=== PATIENT | male | born 1965 | race Two or more races ===

== ENCOUNTER → 2016-07-23 | Outpatient (REF) | payer BC | LOC: M SMT 13:19 | PROVIDERS: ATTEND Nurse Practitioner Family | DX: N20.0 Calculus of kidney (principal) ==

== ENCOUNTER → 2016-08-11 | Outpatient (REF) | payer BC | LOC: M SMT 13:11 | PROVIDERS: ATTEND Nurse Practitioner Family | DX: N20.0 Calculus of kidney (principal) ==

== ENCOUNTER → 2016-09-11 | Day surgery (SDC) | payer BC ==
[~2016-09-11] VITALS: Ht 180.3 cm; Wt 93.0 kg
[~2016-09-11] MED LIST: CONRAY-60 60% 50ML VIAL (Q9961) As Ordered ONE; FLOM5CAP PO; HYDROmorphone HCL 2 MG/ML 1ML VIAL (J1170) As Ordered ONE; KETOROLAC 60 MG/2 ML VIAL (J1885) As Ordered ONE; LEVO150T7 PO; LIDOCAINE 1% MDV 20ML VIAL SC PRN; LIDOCAINE 2% INJ 100 MG/5 ML SDV (FOR ANES.) As Ordered ONE; LR 1,000 ML IV ONE; LR 1,000 ML IV SCH; METOCLOPRAMIDE INJ 10MG/2ML VIAL (J2765) As Ordered ONE; METOCLOPRAMIDE INJ 10MG/2ML VIAL (J2765) IV PRN; MIDAZOLAM INJ 2 MG/2 ML VIAL (J2250) As Ordered ONE; ONDANSETRON 4MG/2ML VIAL (J2405) As Ordered ONE; ONDANSETRON 4MG/2ML VIAL (J2405) IV PRN; PERCOCET 5MG/325MG TAB PO PRN; PROPOFOL 200 MG/20 ML VIAL As Ordered ONE; SIMV20TA2 PO; VITMTA PO; dexameTHASONE 4 MG/ML 1ML VIAL (J1100) As Ordered ONE; fentaNYL 100 MCG/2 ML INJECTION (J3010) As Ordered ONE; fentaNYL 100 MCG/2 ML INJECTION (J3010) IV PRN; oxyBUTYnin 5 MG TAB PO PRN
--- NOTE | 2016-09-11 15:15 | REP ---
C-ARM VIEW ABDOMEN AND PELVIS: C-Arm view abdomen and pelvis performed. Right ureteral stent is seen with proximal end coiled in the region of the right renal pelvis, which is partially opacified with contrast material. The distal end is coiled in the region of the urinary bladder. 9 seconds of fluoroscopy time utilized. Signed by Harry Mccallum MD 09/11/2016 05:25 P
[2016-09-11 17:05] VITALS: BP 125/77
--- NOTE | 2016-09-12 14:24 | RO ---
DATE OF PROCEDURE: 09/11/2016 PREPROCEDURE DIAGNOSIS: Right ureteral stone. POSTPROCEDURE DIAGNOSIS: Right ureteral stone. PROCEDURE: Cystoscopy, right ureteroscopy with laser lithotripsy and basket extraction of stones, right retrograde pyelogram with intraoperative interpretation of images, right ureteral stent placement. SURGEON: Terry Hitchcock MD RUBBER CHEMIST: None. ANESTHESIA: General. OPERATIVE INDICATIONS: This is a 50-year-old male who was recently found to have a 5 mm obstructing right ureteral stone. He was brought to the operating room today for the above-listed procedures. DESCRIPTION OF PROCEDURE: The patient was brought to the operating room, and general anesthesia was induced. Prophylactic antibiotics were infused. He was then placed in the dorsal lithotomy position and prepped and draped in the usual sterile fashion. A rigid cystoscope was inserted into the urethral meatus and advanced into the bladder. Once within the bladder, a guidewire was advanced up the right collecting system. This wire was secured to the drape to serve as a safety wire. We then went up the right collecting system with a short semirigid ureteroscope; and within the distal right ureter, a 5 mm stone was seen. This stone was then fragmented into smaller pieces using a 200 micron laser fiber. The fragments were then removed using a basket. We then examined the rest of the ureter, and no additional stones were seen. A retrograde pyelogram was performed, and it was notable for mild hydronephrosis with no extravasation. At this point, the ureteroscope was removed, and I utilized the previously-placed wire to advance a 6-Iraqi x 22-32 cm double J ureteral stent up into the right collecting system. The wire was then removed, and there were adequate curls of the stent in the right renal pelvis and in the bladder. The bladder was emptied of all fluid, and this marked the conclusion of the procedure. The patient was then taken out of the dorsal lithotomy position, awakened from anesthesia, and transported to the recovery room in stable condition. ESTIMATED BLOOD LOSS: 0 mL. COMPLICATIONS: None. SPECIMENS: Kidney stone fragments. PLAN: The patient will followup in the clinic in a week or two for stent removal.
== END | disposition home or self-care (01) ==
LOC: M SDC 10:43
PROVIDERS: ATTEND Urology
DX: N20.0 Calculus of kidney (principal); N20.1 Calculus of ureter; E78.5 Hyperlipidemia, unspecified; E03.9 Hypothyroidism, unspecified; Z79.899 Other long term (current) drug therapy
CPT/HCPCS: 52356; 74420; 82360; 88300; C1726; C2617; J0690; J1100; J1170; J1885; J2250; J2405; J2765; J3010; Q9961

== ENCOUNTER → 2018-10-17 | Outpatient (CLI) | payer BC ==
[~2018-10-17] MED LIST changes: -CONRAY-60 60% 50ML VIAL (Q9961) As Ordered ONE; +FLOM0.4C39 PO; -FLOM5CAP PO; -HYDROmorphone HCL 2 MG/ML 1ML VIAL (J1170) As Ordered ONE; +IRON65TA2 PO; -KETOROLAC 60 MG/2 ML VIAL (J1885) As Ordered ONE; -LIDOCAINE 1% MDV 20ML VIAL SC PRN; -LIDOCAINE 2% INJ 100 MG/5 ML SDV (FOR ANES.) As Ordered ONE; -LR 1,000 ML IV ONE; -LR 1,000 ML IV SCH; -METOCLOPRAMIDE INJ 10MG/2ML VIAL (J2765) As Ordered ONE; -METOCLOPRAMIDE INJ 10MG/2ML VIAL (J2765) IV PRN; -MIDAZOLAM INJ 2 MG/2 ML VIAL (J2250) As Ordered ONE; -ONDANSETRON 4MG/2ML VIAL (J2405) As Ordered ONE; -ONDANSETRON 4MG/2ML VIAL (J2405) IV PRN; +PANT40TA3 PO; -PERCOCET 5MG/325MG TAB PO PRN; -PROPOFOL 200 MG/20 ML VIAL As Ordered ONE; +XANA0.25 PO; +ZOLO50TA PO; -dexameTHASONE 4 MG/ML 1ML VIAL (J1100) As Ordered ONE; -fentaNYL 100 MCG/2 ML INJECTION (J3010) As Ordered ONE; -fentaNYL 100 MCG/2 ML INJECTION (J3010) IV PRN; -oxyBUTYnin 5 MG TAB PO PRN
--- NOTE | 2018-10-18 06:22 | REP ---
Clinical: Venous insufficiency . Technique: Mccallum scale and color Doppler evaluation using linear high frequency transducer with reflux evaluation . Findings: Ultrasound examination of the right and left lower extremity deep venous structures from the common femoral vein to the popliteal vein demonstrates normal compressibility flow and wave patterns in response to respiration and augmentation. There is no evidence for deep venous thrombosis. Small amount of thrombus noted in the left greater saphenous vein at the level of the calf. Right lower extremity demonstrates reflux through the deep system as well as reflux through the superficial system. Proximal greater saphenous vein at the saphenofemoral junction measures 11 mm diameter with reflux duration 3.6 seconds. Mid greater saphenous vein at the level of the thigh measures 7 mm diameter with reflux duration 4.4 seconds. Distal greater saphenous vein at the knee measures 10 mm diameter with reflux duration 4.1 seconds. Lesser saphenous vein measures 1.4 mm diameter without reflux. Left lower extremity demonstrates reflux through the deep system as well as reflux through the superficial system. Proximal greater saphenous vein at the saphenofemoral junction measures 13 mm diameter with reflux duration 8.7 seconds. Mid greater saphenous vein at the level of the thigh measures 8 mm diameter with reflux duration 3.2 seconds. Distal greater saphenous vein at the knee measures 9 mm diameter with a reflux duration 7 seconds. Lesser saphenous vein measures 2.4 mm diameter without reflux. Impression: 1. No evidence for deep venous thrombosis. 2. Bilateral reflux through the deep and superficial systems. Electronically Signed by Angelito Bhagat MD 10/18/2018 06:13 A
== END ==
LOC: M RAD 11:45
PROVIDERS: ATTEND Physician Assistant
DX: I87.2 Venous insufficiency (chronic) (peripheral) (principal); I80.00 Phlebitis and thrombophlebitis of superficial vessels of unspecified lower extremity

== ENCOUNTER 2018-10-19 11:32 | Day surgery (SDC) | payer BC ==
[~2018-10-19] VITALS: Ht 180.3 cm; Wt 88.6 kg
[~2018-10-19 11:32] MED LIST changes: +NS 1,000 ML IV ONE
[2018-10-19] MEDS ORDERED: PROPOFOL 200 MG/20 ML VIAL As Ordered ONE (11:56)
[2018-10-19] MEDS ORDERED: LIDOCAINE 2% INJ 100 MG/5 ML SDV (FOR ANES.) As Ordered ONE (11:56)
--- NOTE | 2018-10-19 13:35 | ROOR ---
Patient Name: Marvin Connor Procedure Date: 10/19/2018 1:17 PM Date of : 1965 Age: 52 Room: [facility] Gender: Male Note Status: Finalized Procedure: Upper Endoscopy + Biopsies Indications: Iron deficiency anemia Providers: Nabeel Duncan MD Referring MD: Lamar PARRISH NP Requesting Provider: Medicines: Monitored Anesthesia Care Complications: No immediate complications. Procedure: Pre-Anesthesia Assessment: - The heart rate, respiratory rate, oxygen saturations, blood pressure, adequacy of pulmonary ventilation, and response to care were monitored throughout the procedure. The Endoscope was introduced through the mouth, and advanced to the second part of duodenum. The upper GI endoscopy was accomplished without difficulty. The patient tolerated the procedure well. Findings: The Z-line was irregular and was found 40 cm from the incisors. Multiple biopsies were obtained with cold forceps for evaluation to rule out Gomez's Esophagus randomly at the gastroesophageal junction. A small hiatal hernia was present. No other significant abnormalities were identified in a careful examination of the stomach. Biopsies were taken with a cold forceps in the gastric antrum for Helicobacter pylori testing. The exam of the duodenum was otherwise normal. Biopsies for histology were taken with a cold forceps in the first portion of the duodenum for evaluation of celiac disease. The exam was otherwise without abnormality. Impression: - Z-line irregular, 40 cm from the incisors. - Small hiatal hernia. - The examination was otherwise normal. - Multiple biopsies were obtained at the gastroesophageal junction. - Biopsies were taken with a cold forceps for Helicobacter pylori testing. - Biopsies were taken with a cold forceps for evaluation of celiac disease. - The examination was otherwise normal. Recommendation: - Patient has a contact number available for emergencies. The signs and symptoms of potential delayed complications were discussed with the patient. Return to normal activities tomorrow. Written discharge instructions were provided to the patient. - High fiber diet. - Discharge patient to home. - Follow an antireflux regimen. - Continue present medications. - Await pathology results. - Telephone GI clinic for pathology results in 1 week. - Check Portal Online for Path Results.([email or web address] - The findings and recommendations were discussed with the patient's family. Nabeel Duncan MD Nabeel Duncan MD 10/19/2018 1:34:58 PM Electronically signed by Nabeel Duncan MD Number of Addenda: 0 Note Initiated On: 10/19/2018 1:17 PM Estimated Blood Loss: Estimated blood loss: none.
--- NOTE | 2018-10-19 13:56 | ROOR ---
Patient Name: Marvin Connor Procedure Date: 10/19/2018 1:18 PM Date of : 1965 Age: 52 Room: [facility] Gender: Male Note Status: Finalized Procedure: Total Colonoscopy to Cecum + Cold Snare Polypectomy + Hemoclips + ileoscopy Indications: Unexplained iron deficiency anemia Providers: Nabeel Duncan MD Referring MD: Lamar PARRISH NP Requesting Provider: Medicines: Monitored Anesthesia Care Complications: No immediate complications. Procedure: Pre-Anesthesia Assessment: - The heart rate, respiratory rate, oxygen saturations, blood pressure, adequacy of pulmonary ventilation, and response to care were monitored throughout the procedure. The Colonoscope was introduced through the anus and advanced to the terminal ileum, with identification of the appendiceal orifice and IC valve. The colonoscopy was performed without difficulty. The patient tolerated the procedure well. The quality of the bowel preparation was excellent. Findings: The perianal and digital rectal examinations were normal. Non-bleeding internal hemorrhoids were found during retroflexion. The hemorrhoids were small and Grade I (internal hemorrhoids that do not prolapse). A medium polyp was found at 30 cm proximal to the anus. The polyp was sessile. The polyp was removed with a cold snare. Resection and retrieval were complete. To prevent bleeding after the polypectomy, three hemostatic clips were successfully placed (MR conditional). There was no bleeding at the end of the procedure. A small polyp was found in the transverse colon. The polyp was sessile. The polyp was removed with a cold snare. Resection and retrieval were complete. The terminal ileum appeared normal. The exam was otherwise without abnormality on direct and retroflexion views. Impression: - Non-bleeding internal hemorrhoids. - One medium polyp at 30 cm proximal to the anus, removed with a cold snare. Resected and retrieved. Clips (MR conditional) were placed. - One small polyp in the transverse colon, removed with a cold snare. Resected and retrieved. - The examined portion of the ileum was normal. - The examination was otherwise normal on direct and retroflexion views. - The exam was otherwise normal to the cecum. Recommendation: - Patient has a contact number available for emergencies. The signs and symptoms of potential delayed complications were discussed with the patient. Return to normal activities tomorrow. Written discharge instructions were provided to the patient. - High fiber diet. - Discharge patient to home. - Continue present medications. - Await pathology results. - Telephone GI clinic for pathology results in 1 week. - Repeat colonoscopy for surveillance based on pathology results. - Return to referring physician. - Check Portal Online for Path Results.([email or web address] - The findings and recommendations were discussed with the patient's family. Nabeel Duncan MD Nabeel Duncan MD 10/19/2018 1:56:15 PM Electronically signed by Nabeel Duncan MD Number of Addenda: 0 Note Initiated On: 10/19/2018 1:18 PM Estimated Blood Loss: Estimated blood loss: none.
[2018-10-19 14:35] VITALS: BP 130/83
== END 2018-10-19 14:44 | disposition home or self-care (01) ==
LOC: M OPP 11:32
PROVIDERS: ATTEND Internal Medicine Gastroenterology
DX: K64.0 First degree hemorrhoids (principal); D12.6 Benign neoplasm of colon, unspecified; D12.3 Benign neoplasm of transverse colon; K22.8 Other specified diseases of esophagus; K44.9 Diaphragmatic hernia without obstruction or gangrene; D50.9 Iron deficiency anemia, unspecified; Z79.899 Other long term (current) drug therapy

== ENCOUNTER 2018-11-08 03:06 | Inpatient (IN) | payer BC ==
[~2018-11-08] VITALS: Ht 180.3 cm; Wt 86.6 kg
[~2018-11-08 03:06] MED LIST changes: -NS 1,000 ML IV ONE
[2018-11-08] MEDS ORDERED: SIMV20TA2 PO (04:17)
[2018-11-08] MEDS ORDERED: ALPR0.5T3 PO (04:17)
[2018-11-08] MEDS ORDERED: SERTRALINE 100 MG TAB PO ONE (09:00)
[2018-11-08] MEDS ORDERED: ALPRAZolam 0.5 MG TAB PO ONE (09:00)
[2018-11-08] MEDS ORDERED: ALPRAZolam 0.5 MG TAB PO PRN (13:45)
[2018-11-08] MEDS ORDERED: HALOPERIDOL 5 MG TAB PO PRN (13:45)
[2018-11-08] MEDS ORDERED: ACETAMINOPHEN TAB 650MG DOSE (2X325MG) PO PRN (13:45)
[2018-11-08] MEDS ORDERED: MOM 30ML SUSPENSION UDC PO PRN (13:45)
[2018-11-08] MEDS ORDERED: traZODone 50 MG TAB PO PRN (13:45)
[2018-11-08 15:10] VITALS: BP 129/84
[2018-11-08] MEDS: SERTRALINE HCL 50 MG TAB PO SCH (15:31)
[2018-11-08] MEDS: SIMVASTATIN 20 MG TAB PO SCH (20:49)
[2018-11-08] MEDS: LEVOTHYROXINE 150MCG TABLET (0.15MG) PO SCH (20:49)
[2018-11-08] MEDS: PANTOPRAZOLE 40MG TAB (PROTONIX) PO SCH (20:49)
[2018-11-08] MEDS: FERROUS SULFATE 325MG TAB PO SCH (20:49)
[2018-11-09 06:47] VITALS: BP 111/58
[2018-11-09 08:47] LABS: BASO % 0.5 % (0.0-1.0); EOS % 0.7 % (0.0-3.0); HEMATOCRIT 44.8 % (42.0-52.0); LYMPH # 1.2 10^3/uL (1.5-4.5); LYMPH % 19.5 % (24.0-44.0); MEAN CORPUSCULAR HEMOGLOBIN 30.2 pg (27.0-33.0); MEAN CORPUSCULAR HGB CONC 33.5 g/dl (32.0-36.5); MEAN CORPUSCULAR VOLUME 90.1 fl (80.0-96.0); MONO # 0.6 10^3/uL (0.0-0.8); MONO % 10.6 % (0.0-5.0); NEUTROPHILS # 4.1 10^3/uL (1.8-7.7); NEUTROPHILS % 68.4 % (36.0-66.0); PLATELET COUNT, AUTOMATED 334 10^3/uL (150-450); RED BLOOD COUNT 4.97 10^6/uL (4.30-6.10); WHITE BLOOD COUNT 5.9 10^3/uL (4.0-10.0)
[2018-11-09] MEDS: FERROUS SULFATE 325MG TAB PO SCH ×2 (08:57→20:23)
[2018-11-09] MEDS: SERTRALINE HCL 50 MG TAB PO SCH (08:58)
[2018-11-09] MEDS: PANTOPRAZOLE 40MG TAB (PROTONIX) PO SCH ×2 (08:58→20:23)
[2018-11-09] MEDS: MULTIVITAMINS/MINERALS THERAP 1 TAB PO SCH (08:58)
[2018-11-09 09:15] LABS: ALBUMIN 3.9 GM/DL (3.2-5.2); ALT/SGPT 27 U/L (12-78); BILIRUBIN,TOTAL 0.9 MG/DL (0.2-1.0); BLOOD UREA NITROGEN 16 MG/DL (7-18); CALCIUM LEVEL 9.3 MG/DL (8.5-10.1); CARBON DIOXIDE LEVEL 24 MEQ/L (21-32); CHLORIDE LEVEL 107 MEQ/L (98-107); CREATININE FOR GFR 1.09 MG/DL (0.70-1.30); GLOMERULAR FILTRATION RATE > 60.0 (>56); GLUCOSE, FASTING 90 MG/DL (70-100); SODIUM LEVEL 141 MEQ/L (136-145)
--- NOTE | 2018-11-09 11:54 | MHHPEPDOC ---
[facility] History & Physical History and Physical DATE OF ADMISSION: Nov 08, 2018 at 13:44 Date of Service: 11/09/2018 Chief Complaint "I just couldn't take it anymore." History of Present Illness The patient, a 53-year-old man, with no past psychiatric history, presents to [facility] with increasing depression and loss of function. He reportedly had an episode roughly 3 months ago where he nearly in a gastrointestinal bleed treated in [place]. The patient reports that after this he began to fear as he has reportedly been fairly healthy. He additionally notes stressors of his mother being diagnosed with cancer as well as poor social connection. The patient reports having low energy, loss of interest, concentration, focus problems and has not been able to sleep well with no suicidal thoughts at this time, but increasing hopelessness. He reports that he does have some intrusive thoughts related to the event with some avoidance, negative cognition about the future and increased anxiety/hypervigilance. Review Of Systems Depression: As above. Anxiety: Trauma-related stressors, but no unprovoked anxiety. Stella: The patient denies any episodes of euphoria/dysphoria associated with decreased need for sleep, hedonism, talkatively or impulsivity lasting longer than 5 days. Psychotic: The patient denies any experiences of auditory or visual hallucinations. They deny any episodes of paranoia or delusional thinking in the past Trauma: As above. Borderline: Not screened at this time. Past Psychiatric History The patient has no history of mental health follow-up except for a short-time treatment with Mindi Solares for therapy as well as being treated by primary care with sertraline 100 mg that he notes is not helpful. He has no history of suicide attempts in the past. Allergies Please see below. Family Psychiatric History The patient denies/is unaware any history of mental health history including addictions and suicide. Social History The patient grew up in the local area and describes that his parents were with a relatively close relationship. The patient describes that he was able to graduate with a high school diploma and currently works as maintenance at [employer]. He currently lives alone and has a long-term girlfriend, but has never been . He has no children at this time and reports that he has fair support from some friends, but generally lives a fairly isolative life. He denies any significant abuse or violence growing up. Substance Abuse History The patient denies any excessive alcohol use, tobacco or illicit drug use, denies history of substance use treatment. Medical History The patient has had no past medical history up until a recent GI bleed from unknown causes. Mental Status Examination General: Well dressed with good hygiene Speech: Spontaneous and fluid Thought processes: Linear and logical MSK: Smooth and coordinated gait, no signs of tremors or involuntary orofacial movements Thought content: Help-seeking Abstract reasoning, and computation: Intact Description of associations: Intact Description of abnormal or psychotic thoughts: Denies any suicidal or homicidal ideation. Denies any auditory or visual hallucinations. Does not appear to be responding to internal stimuli. Does not appear to be endorsing any bizarre or paranoid ideation. Judgment: Fair Insight: Fair Orientation: Alert and orientated 3 Cognition: Grossly normal Recent and remote memory: Intact Attention span and concentration: Intact Fund of knowledge: Adequate Mood: "okay" Affect: Highly anxious with a constricted range Diagnoses Unspecified trauma/stressor-related disorder. Rule out ICU PTSD. Unspecified depressive disorder. Rule out MDD versus PTSD-related depression versus adjustment. Assessment and Plan The patient, a 53-year-old man, with a history of ICU-related trauma, presents depressed, is likely overall trauma-related provoked/base condition provoking his problems. He has tried very few medications and likely would do well with very minimal interventions. Disposition The patient will need a longer inpatient admission in order to stabilize his symptoms and assure for a safe discharge. Problem List 1. Ineffective coping. 2. Depression. 3. Anxiety. Initial Treatment Plan 1. Patient was admitted on a 9.39 legal status. 2. Complete history was obtained. 3. With patients permission, family will be contacted and database will be expanded. 4. Patients medication regimen will be reviewed and changed accordingly. 5. Patient will be provided with protected environment. 6. Patient will be treated with individual, group, and milieu therapies. 7. Patient will receive supportive psych-education. 8. Discharge planning will commence immediately. 9. Outpatient follow-up treatment will be strongly recommended. 10. The initial treatment plan will focus initially on: continuing sertraline 100 mg daily and starting Wellbutrin 150 mg extended release as augmentation. Discussed risks, benefits and potential side effects of Wellbutrin in combination with sertraline. Additionally, we will discontinue Xanax. Discussed at length psychoeducation-espitia anxiety and the avoidance that Xanax creates w orking against his treatment. We will convert patient to voluntary as he does not meet criteria for extension of an involuntary admission at this time. Estimated Length Of Stay 3 days. Time Spent 45 minutes. Wednesday Vital Signs Vital Signs Date Time Temp Pulse Resp B/P (MAP) Pulse Ox O2 Delivery O2 Flow Rate FiO2 11/09/18 06:47 98.3 80 18 111/58 (75) 11/08/18 13:55 97 Room Air Laboratory Data 24H Labs Laboratory Tests 2 11/09/18 08:22: Immature Granulocyte % (Auto) 0.3, White Blood Count 5.9, Red Blood Count 4.97, Hemoglobin 15.0, Hematocrit 44.8, Mean Corpuscular Volume 90.1, Mean Corpuscular Hemoglobin 30.2, Mean Corpuscular Hemoglobin Concent 33.5, Red Cell Distribution Width 13.1, Platelet Count 334, Neutrophils (%) (Auto) 68.4H, Lymphocytes (%) (Auto) 19.5L, Monocytes (%) (Auto) 10.6H, Eosinophils (%) (Auto) 0.7, Basophils (%) (Auto) 0.5, Neutrophils # (Auto) 4.1, Lymphocytes # (Auto) 1.2L, Monocytes # (Auto) 0.6, Eosinophils # (Auto) 0.0, Basophils # (Auto) 0.0, Nucleated Red Blood Cells % (auto) 0.0, Anion Gap 10, Glomerular Filtration Rate > 60.0, Blood Urea Nitrogen 16, Creatinine 1.09, Sodium Level 141, Potassium Level 4.0, Chloride Level 107, Carbon Dioxide Level 24, Calcium Level 9.3, Aspartate Amino Transf (AST/SGOT) 15, Alanine Aminotransferase (ALT/SGPT) 27, Alkaline Phosphatase 91, Total Bilirubin 0.9, Total Protein 7.0, Albumin 3.9, Alb umin/Globulin Ratio 1.26 CBC/BMP Laboratory Tests 11/09/18 08:22 Red Blood Count 4.97, Mean Corpuscular Volume 90.1, Mean Corpuscular Hemoglobin 30.2, Mean Corpuscular Hemoglobin Concent 33.5, Red Cell Distribution Width 13.1, Neutrophils (%) (Auto) 68.4 H, Lymphocytes (%) (Auto) 19.5 L, Monocytes (%) (Auto) 10.6 H, Eosinophils (%) (Auto) 0.7, Basophils (%) (Auto) 0.5, Neutro phils # (Auto) 4.1, Lymphocytes # (Auto) 1.2 L, Monocytes # (Auto) 0.6, Eosinophils # (Auto) 0.0, Basophils # (Auto) 0.0, Calcium Level 9.3, Aspartate Amino Transf (AST/SGOT) 15, Alanine Aminotransferase (ALT/SGPT) 27, Alkaline Phosphatase 91, Total Bilirubin 0.9, Total Protein 7.0, Albumin 3.9 Medications Scheduled Ferrous Sulfate (Iron) 325 Mg Tablet, 325 MG PO BID, (Reported) Levothyroxine Sodium (Levothyroxine Sodium) 150 Mcg Tab, 150 MCG PO QHS, (Reported) Multivitamins (Thera M Plus Tablet) 1 Tab Tab, 1 TAB PO DAILY, (Reported) Pantoprazole Sodium (Pantoprazole Sodium) 40 Mg Tablet.dr, 40 MG PO BID, (Reported) Sertraline Hcl (Zoloft) 50 Mg Tablet, 100 MG PO DAILY, (Reported) Simvastatin (Simvastatin) 20 Mg Tablet, 20 MG PO QHS, (Reported) Scheduled PRN Alprazolam (Alprazolam) 0.5 Mg Tablet, 0.5 MG PO TID PRN for ANXIETY, (Reported) Allergies Coded Allergies: No Known Allergies (Unverified , 11/08/18) LEENA AVILEZ DO Nov 09, 2018 11:54
--- NOTE | 2018-11-09 11:58 | HPEPDOC ---
General Date of Admission Nov 08, 2018 at 13:44 Date of Service: Nov 09, 2018 Attending Physician: FER TORRES MD Chief Complaint The patient is a 53-year-old male admitted with a reason for visit of Unspecified Depressive Disorder. History of Present Illness Nioklas Hale is a 53-year-old male, primary medical history significant for peripheral vascular disease with venous insufficiency, depression who presents to ED as a transfer on account of depression for 3 months, worsening in intensity. He was admitted to inpatient psychiatric unit for further evaluation and management. On assessment, he denies chest pain, chills, fever, shortness of breath. On assessment, he denies chills, fever, chest pain, shortness of breath. He complains of left lower extremity varicose veins for which she has seen vascular surgery. There are plans for vein ablation next month. Home Medications Scheduled Ferrous Sulfate (Iron) 325 Mg Tablet, 325 MG PO BID, (Reported) Levothyroxine Sodium (Levothyroxine Sodium) 150 Mcg Tab, 150 MCG PO QHS, (Reported) Multivitamins (Thera M Plus Tablet) 1 Tab Tab, 1 TAB PO DAILY, (Reported) Pantoprazole Sodium (Pantoprazole Sodium) 40 Mg Tablet.dr, 40 MG PO BID, (Reported) Sertraline Hcl (Zoloft) 50 Mg Tablet, 100 MG PO DAILY, (Reported) Simvastatin (Simvastatin) 20 Mg Tablet, 20 MG PO QHS, (Reported) Scheduled PRN Alprazolam (Alprazolam) 0.5 Mg Tablet, 0.5 MG PO TID PRN for ANXIETY, (Reported) Allergies Coded Allergies: No Known Allergies (Unverified , 11/08/18) Past Medical History Medical History Hyperlipidemia Venous insufficiency Depression Surgical History Appendectomy. Nephrolithiasis and removal Family History Father: Myocardial infarction, CAD Mother: Cancer Social History * Smoker: Denies Alcohol: Denies Drugs: denies A-FIB/CHADSVASC A-FIB History Current/History of A-Fib/PAF?: No Current PO Anticoag Therapy: No Review of Systems Other systems A pertinent 10 point review of systems is completed, negative except as stated in the history of presenting illness Physical Examination Other physical findings GENERAL: NAD SKIN : Warm, dry intact HEENT: Atraumatic, normocephalic, moist mucous membrane CARDIOVASCULAR: Regular rate and rhythm, S1S2, no JVD, no edema, lower extremity gross venous varicosity, distal pulses + palpable RESP: CTAB, no accessory muscle use noted ABDOMEN: BS+ non distended non tender MS: no joint deformities NEURO: Alert and oriented x 3, CN2-12 grossly intact PSYCH: no anxiety or agitation, appropriate mood and affect. Vital Signs Vital Signs Date Time Temp Pulse Resp B/P (MAP) Pulse Ox O2 Delivery O2 Flow Rate FiO2 11/09/18 06:47 98.3 80 18 111/58 (75) 11/08/18 13:55 97 Room Air Laboratory Data Labs 24H Laboratory Tests 2 11/09/18 08:22: Immature Granulocyte % (Auto) 0.3, White Blood Count 5.9, Red Blood Count 4.97, Hemoglobin 15.0, Hematocrit 44.8, Mean Corpuscular Volume 90.1, Mean Corpuscular Hemoglobin 30.2, Mean Corpuscular Hemoglobin Concent 33.5, Red Cell Distribution Width 13.1, Platelet Count 334, Neutrophils (%) (Auto) 68.4H, Lymphocytes (%) ( Auto) 19.5L, Monocytes (%) (Auto) 10.6H, Eosinophils (%) (Auto) 0.7, Basophils (%) (Auto) 0.5, Neutrophils # (Auto) 4.1, Lymphocytes # (Auto) 1.2L, Monocytes # (Auto) 0.6, Eosinophils # (Auto) 0.0, Basophils # (Auto) 0.0, Nucleated Red Blood Cells % (auto) 0.0, Anion Gap 10, Glomerular Filtration Rate > 60.0, Blood Urea Nitrogen 16, Creatinine 1.09, Sodium Level 141, Potassium Level 4.0, Chloride Level 107, Carbon Dioxide Level 24, Calcium Level 9.3, Aspartate Amino Transf (AST/SGOT) 15, Alanine Aminotransferase (ALT/SGPT) 27, Alkaline Phosphatase 91, Total Bilirubin 0.9, Total Protein 7.0, Albumin 3.9, Albumin/Globulin Ratio 1.26 CBC/BMP Laboratory Tests 11/09/18 08:22 Red Blood Count 4.97, Mean Corpuscular Volume 90.1, Mean Corpuscular Hemoglobin 30.2, Mean Corpuscular Hemoglobin Concent 33.5, Red Cell Distribution Width 13.1, Neutrophils (%) (Auto) 68.4 H, Lymphocytes (%) (Auto) 19.5 L, Monocytes (%) (Auto) 10.6 H, Eosinophils (%) (Auto) 0.7, Basophils (%) (Auto) 0.5, Neutrophils # (Auto) 4.1, Lymphocytes # (Auto) 1.2 L, Monocytes # (Auto) 0.6, Eosinophils # (Auto) 0.0, Basophils # (Auto) 0.0, Calcium Level 9.3, Aspartate Amino Transf (AST/SGOT) 15, Alanine Aminotransferase (ALT/SGPT) 27, Alkaline Phosphatase 91, Total Bilirubin 0.9, Total Protein 7.0, Albumin 3.9 Assessment/Plan Varicose veins -Daily Lovenox was initially suggested patient declined -Amenable to using teds during this hospitalization -Plan for vein ablation next month with Dr. Brice Depression -Management by primary team Plan / VTE VTE Prophylaxis Ordered?: Yes PRATIK HOPKINS Nov 09, 2018 11:58
[2018-11-09] MEDS ORDERED: buPROPion **XL** TABLET 150MG (WELLBUTRIN XL) PO ONE (14:45)
[2018-11-09 18:00] VITALS: BP 122/75
[2018-11-09] MEDS: SIMVASTATIN 20 MG TAB PO SCH (20:23)
[2018-11-09] MEDS: LEVOTHYROXINE 150MCG TABLET (0.15MG) PO SCH (20:23)
[2018-11-09] MEDS: RAMELTEON 8 MG TAB (ROZEREM) PO PRN (21:48)
[2018-11-10 06:42] VITALS: BP 116/65
[2018-11-10] MEDS: MULTIVITAMINS/MINERALS THERAP 1 TAB PO SCH (08:31)
[2018-11-10] MEDS: buPROPion **XL** TABLET 150MG (WELLBUTRIN XL) PO SCH (08:31)
[2018-11-10] MEDS: FERROUS SULFATE 325MG TAB PO SCH (08:31)
[2018-11-10] MEDS: PANTOPRAZOLE 40MG TAB (PROTONIX) PO SCH ×2 (08:32→20:33)
[2018-11-10] MEDS: SERTRALINE HCL 50 MG TAB PO SCH (08:32)
[2018-11-10 09:35] VITALS: BP 120/66
[2018-11-10 18:00] VITALS: BP 128/77
[2018-11-10] MEDS: SIMVASTATIN 20 MG TAB PO SCH (20:33)
[2018-11-10] MEDS: LEVOTHYROXINE 150MCG TABLET (0.15MG) PO SCH (20:33)
--- NOTE | 2018-11-10 20:52 | MHIPNPDOC ---
[facility] Progress Note Progress Note Date of Service: 11/10/2018 History of Present Illness The patient, a 53-year-old man, with no past psychiatric history, presents to [facility] with increasing depression and loss of function. He reportedly had an episode roughly 3 months ago where he nearly in a gastrointestinal bleed treated in [place]. The patient reports that after this he began to fear as he has reportedly been fairly healthy. He additionally notes stressors of his mother being diagnosed with cancer as well as poor social connection. The patient reports having low energy, loss of interest, concentration, focus problems and has not been able to sleep well with no suicidal thoughts at this time, but increasing hopelessness. He reports that he does have some intrusive thoughts related to the event with some avoidance, negative cognition about the future and increased anxiety/hypervigilance. Interval History The patient is met with. He describes he hasn't noticed strong effect from the medication yet, but does notice some small changes in focus and concentration as well as more interest in engaging in daily activities, such as watching TV. The patient denies any side effects from his Wellbutrin, such as tremors, GI upset or other concerning problems. He has been attending groups intermittently and has generally been well-behaved on the unit with no behavioral problems noted. The patient has been at times reportedly someone needy, focusing in on various medications and asking whether "I'll ever get better." He seems to respond very mildly to some reassurance, but continues to be fairly anxious on the unit. Review Of Systems Reports continued anxiety worse in the morning; however, he describes that this has been common with his depressed mood for last 3 months. Psychotherapy None on this visit. Vital Signs Reviewed. Mental Status Examination General: Well dressed with good hygiene Speech: Spontaneous and fluid Thought processes: Linear and logical MSK: Smooth and coordinated gait, no signs of tremors or involuntary orofacial movements Thought content: Help-seeking Abstract reasoning, and computation: Intact Description of associations: Intact Description of abnormal or psychotic thoughts: Denies any suicidal or homicidal ideation. Denies any auditory or visual hallucinations. Does not appear to be responding to internal stimuli. Does not appear to be endorsing any bizarre or paranoid ideation. Judgment: Fair Insight: Fair Orientation: Alert and orientated 3 Cognition: Grossly normal Recent and remote memory: Intact Attention span and concentration: Intact Fund of knowledge: Adequate Mood: "okay" Affect: Highly anxious with a constricted range Diagnoses Unspecified trauma/stressor-related disorder. Rule out ICU PTSD. Unspecified depressive disorder. Rule out MDD versus PTSD-related depression versus adjustment. Assessment and Plan The patient appears to be making sufficient improvement on a low dose of Wellbutrin 150 mg extended release with augmented with his sertraline 100 mg daily. We'll continue with these medications as well as Rozerem for sleep. Further monitoring as his depression begins to resolve will help elicit whether further medication changes will be helpful. Disposition The patient will need a longer inpatient admission in order to stabilize his symptoms and assure for a safe discharge. Time Spent 15 minutes [id number]. Vital Signs Vital Signs Date Time Temp Pulse Resp B/P (MAP) Pulse Ox O2 Delivery O2 Flow Rate FiO2 11/10/18 18:00 98.7 94 18 128/77 (94) 11/08/18 13:55 97 Room Air Current Medications Current Medications Medications (Trade) Dose Ordered Sig/Jose Miguel Route PRN Reason Start Time Stop Time Status Last Admin Dose Admin Acetaminophen (Tylenol Tab) 650 mg Q6HP PRN PO HEADACHE or DISCOMFORT 11/08/18 13:45 11/10/18 08:56 Alprazolam (Xanax) 0.5 mg TID PRN PO ANXIETY 11/08/18 13:45 11/09/18 14:45 DC 11/09/18 02:44 Bupropion HCl (Wellbutrin Xl) 150 mg DAILY PO 11/10/18 09:00 11/10/18 08:31 Ferrous Sulfate (Ferrous Sulfate) 325 mg BID PO 11/08/18 21:00 11/10/18 19:37 DC 11/10/18 08:31 Ferrous Sulfate (Ferrous Sulfate) 325 mg DAILY PO 11/11/18 09:00 Haloperidol (Haldol) 5 mg Q6HP PRN PO ANXIETY/AGITATION 11/08/18 13:45 Home Med (Med Rec Complete!) ASDIRECTED XX 11/08/18 04:30 11/08/18 04:32 DC Levothyroxine Sodium (Synthroid) 150 mcg QHS PO 11/08/18 21:00 11/10/18 20:33 Magnesium Hydroxide (Milk Of Magnesia) 30 ml DAILYPRN PRN PO CONSTIPATION 11/08/18 13:45 Multivitamins (Theragram-M) 1 tab DAILY PO 11/09/18 09:00 11/10/18 08:31 Pantoprazole Sodium (Protonix) 40 mg BID PO 11/08/18 21:00 11/10/18 20:33 Ramelteon (Rozerem) 8 mg QHSP PRN PO FOR SLEEP 11/09/18 14:45 11/09/18 21:48 Sertraline HCl (Zoloft) 100 mg DAILY PO 11/08/18 09:00 11/10/18 08:32 Simvastatin (Zocor) 20 mg QHS PO 11/08/18 21:00 11/10/18 20:33 Trazodone HCl (Desyrel) 50 mg QHSP PRN PO INSOMNIA 11/08/18 13:45 11/09/18 15:48 DC 11/08/18 22:12 Allergies Coded Allergies: No Known Allergies (Unverified , 11/08/18) LEENA AVILEZ DO Nov 10, 2018 20:52
[2018-11-10] MEDS: RAMELTEON 8 MG TAB (ROZEREM) PO PRN (21:26)
[2018-11-11 06:08] VITALS: BP 140/84
[2018-11-11] MEDS: SERTRALINE HCL 50 MG TAB PO SCH (08:08)
[2018-11-11] MEDS: FERROUS SULFATE 325MG TAB PO SCH (08:08)
[2018-11-11] MEDS: buPROPion **XL** TABLET 150MG (WELLBUTRIN XL) PO SCH (08:08)
[2018-11-11] MEDS: PANTOPRAZOLE 40MG TAB (PROTONIX) PO SCH ×2 (08:08→20:47)
[2018-11-11] MEDS: MULTIVITAMINS/MINERALS THERAP 1 TAB PO SCH (08:08)
[2018-11-11] MEDS ORDERED: cloNIDine 0.05MG PER 1/2 TABLET PO PRN (13:15)
--- NOTE | 2018-11-11 14:19 | MHIPNPDOC ---
[facility] Progress Note Progress Note Date of Service: 11/11/2018 History of Present Illness The patient, a 53-year-old man, with no past psychiatric history, presents to [facility] with increasing depression and loss of function. He reportedly had an episode roughly 3 months ago where he nearly in a gastrointestinal bleed treated in [place]. The patient reports that after this he began to fear as he has reportedly been fairly healthy. He additionally notes stressors of his mother being diagnosed with cancer as well as poor social connection. The patient reports having low energy, loss of interest, concentration, focus problems and has not been able to sleep well with no suicidal thoughts at this time, but increasing hopelessness. He reports that he does have some intrusive thoughts related to the event with some avoidance, negative cognition about the future and increased anxiety/hypervigilance. Interval History The patient is met with today. He describes his anxiety as higher and that his mood has not improved. He describes that he is unsure why his anxiety is so free-standing and constant. He reports that he has had no additional abdominal pain and his stool test for occult blood came back negative. The patient reports that he is worried and hopeless that his symptoms will get better. Review Of Systems Denies any side effects from the Wellbutrin such as palpitation, tremors. Admits to possible anxiety. Continues to report low mood, fatigue and loss of Interest. Psychotherapy None on this visit. Vital Signs Reviewed. Mental Status Examination General: Well dressed with good hygiene Speech: Spontaneous and fluid Thought processes: Linear and logical MSK: Smooth and coordinated gait, no signs of tremors or involuntary orofacial movements Thought content: Help-seeking Abstract reasoning, and computation: Intact Description of associations: Intact Description of abnormal or psychotic thoughts: Denies any suicidal or homicidal ideation. Denies any auditory or visual hallucinations. Does not appear to be responding to internal stimuli. Does not appear to be endorsing any bizarre or paranoid ideation. Judgment: Fair Insight: Fair Orientation: Alert and orientated 3 Cognition: Grossly normal Recent and remote memory: Intact Attention span and concentration: Intact Fund of knowledge: Adequate Mood: "okay" Affect: Highly anxious with a constricted range Diagnoses Unspecified trauma/stressor-related disorder. Rule out ICU PTSD. Unspecified depressive disorder. Rule out MDD versus PTSD-related depression versus adjustment. Assessment and Plan The patient appears to be making relatively poor improvement on the Wellbutrin and sertraline on Day 2, possibly relating to increased anxiety from the Wellbutrin. Discontinue Wellbutrin and sertraline at this time, start mirtazapine 7.5 mg daily and clonidine 0.05 mg tid PRN. Discussed with patient risks and benefits as well as potential side effects of those two medications as well as alternatives. Patient selected this out of a range of alternatives. Disposition The patient will need a longer inpatient admission in order to stabilize his symptoms and assure for a safe discharge. Time Spent 15 minutes [id number]. Wednesday Vital Signs Vital Signs Date Time Temp Pulse Resp B/P (MAP) Pulse Ox O2 Delivery O2 Flow Rate FiO2 11/11/18 06:08 99.3 104 18 140/84 (102) 11/08/18 13:55 97 Room Air Current Medications Current Medications Medications (Trade) Dose Ordered Sig/Jose Miguel Route PRN Reason Start Time Stop Time Status Last Admin Dose Admin Acetaminophen (Tylenol Tab) 650 mg Q6HP PRN PO HEADACHE or DISCOMFORT 11/08/18 13:45 11/10/18 08:56 Alprazolam (Xanax) 0.5 mg TID PRN PO ANXIETY 11/08/18 13:45 11/09/18 14:45 DC 11/09/18 02:44 Bupropion HCl (Wellbutrin Xl) 150 mg DAILY PO 11/10/18 09:00 11/11/18 08:08 Clonidine HCl (Catapres) 0.05 mg TIDP PRN PO ANXIETY 11/11/18 13:15 Ferrous Sulfate (Ferrous Sulfate) 325 mg BID PO 11/08/18 21:00 11/10/18 19:37 DC 11/10/18 08:31 Ferrous Sulfate (Ferrous Sulfate) 325 mg DAILY PO 11/11/18 09:00 11/11/18 08:08 Haloperidol (Haldol) 5 mg Q6HP PRN PO ANXIETY/AGITATION 11/08/18 13:45 11/11/18 03:14 Home Med (Med Rec Complete!) ASDIRECTED XX 11/08/18 04:30 11/08/18 04:32 DC Levothyroxine Sodium (Synthroid) 150 mcg QHS PO 11/08/18 21:00 11/10/18 20:33 Magnesium Hydroxide (Milk Of Magnesia) 30 ml DAILYPRN PRN PO CONSTIPATION 11/08/18 13:45 Mirtazapine (Remeron) 7.5 mg QHS PO 11/11/18 21:00 Multivitamins (Theragram-M) 1 tab DAILY PO 11/09/18 09:00 11/11/18 08:08 Pantoprazole Sodium (Protonix) 40 mg BID PO 11/08/18 21:00 11/11/18 08:08 Ramelteon (Rozerem) 8 mg QHSP PRN PO FOR SLEEP 11/09/18 14:45 11/11/18 13:08 DC 11/10/18 21:26 Sertraline HCl (Zoloft) 100 mg DAILY PO 11/08/18 09:00 11/11/18 13:08 DC 11/11/18 08:08 Simvastatin (Zocor) 20 mg QHS PO 11/08/18 21:00 11/10/18 20:33 Trazodone HCl (Desyrel) 50 mg QHSP PRN PO INSOMNIA 11/08/18 13:45 11/09/18 15:48 DC 11/08/18 22:12 Allergies Coded Allergies: No Known Allergies (Unverified , 11/08/18) LEENA AVILEZ DO Nov 11, 2018 14:18
[2018-11-11 15:10] VITALS: BP 124/83
[2018-11-11 18:09] VITALS: BP 116/78
[2018-11-11] MEDS: SIMVASTATIN 20 MG TAB PO SCH (20:47)
[2018-11-11] MEDS: LEVOTHYROXINE 150MCG TABLET (0.15MG) PO SCH (20:47)
[2018-11-11] MEDS ORDERED: MIRTAZAPINE 7.5MG PER 1/2 TABLET PO SCH (21:00)
[2018-11-12 06:52] VITALS: BP 120/73
[2018-11-12] MEDS: buPROPion **XL** TABLET 150MG (WELLBUTRIN XL) PO SCH (09:49)
[2018-11-12] MEDS: MULTIVITAMINS/MINERALS THERAP 1 TAB PO SCH (09:50)
[2018-11-12] MEDS: FERROUS SULFATE 325MG TAB PO SCH (09:50)
[2018-11-12] MEDS: PANTOPRAZOLE 40MG TAB (PROTONIX) PO SCH ×2 (09:50→20:15)
[2018-11-12 18:01] VITALS: BP 108/73
[2018-11-12] MEDS: MIRTAZAPINE 15 MG TAB PO SCH (20:15)
[2018-11-12] MEDS: LEVOTHYROXINE 150MCG TABLET (0.15MG) PO SCH (20:15)
[2018-11-12] MEDS: SIMVASTATIN 20 MG TAB PO SCH (20:15)
[2018-11-13 06:54] VITALS: BP 114/72
[2018-11-13] MEDS: MULTIVITAMINS/MINERALS THERAP 1 TAB PO SCH (08:45)
[2018-11-13] MEDS: buPROPion **XL** TABLET 150MG (WELLBUTRIN XL) PO SCH (08:45)
[2018-11-13] MEDS: PANTOPRAZOLE 40MG TAB (PROTONIX) PO SCH ×2 (08:45→20:25)
[2018-11-13] MEDS: FERROUS SULFATE 325MG TAB PO SCH (08:45)
--- NOTE | 2018-11-13 09:52 | MHIPN ---
DATE: 11/12/2018 VITAL SIGNS: Temperature 99.3, pulse 85, respirations 16, blood pressure 120/73. CURRENT MEDICATIONS: - Remeron 7.5 mg at bedtime - Wellbutrin XL 150 mg every a.m. HISTORY OF PRESENT ILLNESS: This is a 53-year-old white male with a history of depression dating back approximately 3 months. The precipitating stressor appeared to be that of a severe GI bleed in [place]. The patient is still apprehensive about this experience as well as the fact that his mother is being treated for cancer. The patient states that he slept better last night. He was started on low dose Remeron and tolerated it well. His appetite is still poor. He states his mood is marginal. He denies any wish to harm self or others. He states his depressive symptoms are moderate. He feels comfortable increasing the dose of Remeron. MENTAL STATUS EXAMINATION: The patient is alert, oriented and cooperative. Grooming and hygiene are reasonably good. The patient denies being a danger to self or others. The patient reports he is still moderately depressed. Insight and judgment remain fair. The patient is not psychotic. He is not hearing voices. No paranoid or thought disorder. No signs of impulsivity. Cognitive functions appear intact. DIAGNOSIS: Depressive disorder unspecified. PLAN: Increase Remeron to 15 mg at bedtime.
[2018-11-13 18:40] VITALS: BP 128/80
[2018-11-13] MEDS: SIMVASTATIN 20 MG TAB PO SCH (20:25)
[2018-11-13] MEDS: MIRTAZAPINE 15 MG TAB PO SCH (20:25)
[2018-11-13] MEDS: LEVOTHYROXINE 150MCG TABLET (0.15MG) PO SCH (20:25)
[2018-11-14 06:37] VITALS: BP 134/75
[2018-11-14] MEDS ORDERED: CLONI1TA PO (08:52)
[2018-11-14] MEDS ORDERED: REME15TA PO (08:52)
[2018-11-14] MEDS: FERROUS SULFATE 325MG TAB PO SCH (08:56)
[2018-11-14] MEDS: buPROPion **XL** TABLET 150MG (WELLBUTRIN XL) PO SCH (08:56)
[2018-11-14] MEDS: MULTIVITAMINS/MINERALS THERAP 1 TAB PO SCH (08:57)
[2018-11-14] MEDS: PANTOPRAZOLE 40MG TAB (PROTONIX) PO SCH (08:57)
--- NOTE | 2018-11-14 09:41 | MHDSPDOC ---
[facility] Discharge Summary Discharge Summary DATE OF ADMISSION: Nov 08, 2018 at 13:44 DATE OF DISCHARGE: 11/14/18 Date of Service: 11/14/2018 Diagnoses Unspecified trauma/stressor-related disorder. Rule out ICU PTSD. Unspecified depressive disorder. Rule out MDD versus PTSD-related depression versus adjustment. History of Present Illness The patient, a 53-year-old man, with no past psychiatric history, presents to [facility] with increasing depression and loss of function. He reportedly had an episode roughly 3 months ago where he nearly in a gastrointestinal bleed treated in [place]. The patient reports that after this he began to fear as he has reportedly been fairly healthy. He additionally notes stressors of his mother being diagnosed with cancer as well as poor social connection. The patient reports having low energy, loss of interest, concentration, focus problems and has not been able to sleep well with no suicidal thoughts at this time, but increasing hopelessness. He reports that he does have some intrusive thoughts related to the event with some avoidance, ne gative cognition about the future and increased anxiety/hypervigilance. Consultants Involved Hospitalist/PCP screening Treatment and Progress On The Unit The patient was admitted to the unit and subsequently tried on Wellbutrin as an augmentation to his 100 mg of sertraline. The results were only very mild changes in mood with no significant change in sleep or eating habits. He was subsequently taken off the Wellbutrin, as he had notable anxiety increase as well as sertraline and placed on Remeron 7.5 mg with positive effects, tapered up to 15 mg. He did quite well. He did not have any suicidal ideation on presentation and noted that he felt his depression was getting worse to the "point" that he might start thinking about that, but demonstrate no concerning ideation or behaviors on the unit. He had been reporting significant improvement on the Remeron as well as PRN clonidine and after connection to outpatient resources, he was amenable to discharge and follow up as outpatient. He did not meet involuntary criteria at that time and was not appropriate for a further voluntary admission, as he was demonstrating no acute safety problems from the start of his presentation. He tolerated the medications well. He did have an episode of epigastric pain with a negative occult blood stool taken, which appeared to be attributed to GERD. Discharge Assessment Patient, a 53-year-old man, with significant anxiety after a close encounter with with a gastric bleed 3 months ago possibly in the phase of developing PTSD. He does appear to have some underlying personality traits as per collateral resources with his mother that likely predisposed him to having difficulties adjusting to traumatic situations. Mental Status Examination General: Well dressed with good hygiene Speech: Spontaneous and fluid Thought processes: Linear and logical MSK: Smooth and coordinated gait, no signs of tremors or involuntary orofacial movements Thought content: Future orientated Abstract reasoning, and computation: Intact Description of associations: Intact Description of abnormal or psychotic thoughts: Denies any suicidal or homicidal ideation. Denies any auditory or visual hallucinations. Does not appear to be responding to internal stimuli. Does not appear to be endorsing any bizarre or paranoid ideation. Judgment: fair Insight: fair Orientation: Alert and orientated 3 Cognition: Grossly normal Recent and remote memory: Intact Attention span and concentration: Intact Fund of knowledge: Adequate Mood: "okay" Affect: Euthymic with a full range Follow Up The social work team worked during the predischarge meeting in order to evaluate for further issues of lethality address them fully before discharge. They worked on safety planning with the patient's family members in order to ensure that the patient will have a safe and effective discharge. Time Spent The amount of time spent in the coordination of care for this patient was approximately 30 minutes. Wednesday Vital Signs/I&Os Vital Signs Date Time Temp Pulse Resp B/P (MAP) Pulse Ox O2 Delivery O2 Flow Rate FiO2 11/14/18 06:37 97.8 80 14 134/75 (94) 11/13/18 08:05 Room Air 11/08/18 13:55 97 Laboratory Data Microbiology Microbiology 11/10/18 Stool Occult Blood (EMI) - Final, Complete Medications Scheduled Ferrous Sulfate (Iron) 325 Mg Tablet, 325 MG PO BID, (Reported) Levothyroxine Sodium (Levothyroxine Sodium) 150 Mcg Tab, 150 MCG PO QHS, (Reported) Mirtazapine (Remeron) 15 Mg Tablet, 15 MG PO QHS for mood for 7 Days, #7 Multivitamins (Thera M Plus Tablet) 1 Tab Tab, 1 TAB PO DAILY, (Reported) Pantoprazole Sodium (Pantoprazole Sodium) 40 Mg Tablet.dr, 40 MG PO BID, (Reported) Simvastatin (Simvastatin) 20 Mg Tablet, 20 MG PO QHS, (Reported) Scheduled PRN Clonidine Hcl (Clonidine HCl) 0.1 Mg Tablet, 0.05 MG PO TIDP PRN for ANXIETY for 7 Days, #7 Allergies Coded Allergies: No Known Allergies (Unverified , 11/08/18) LEENA AVILEZ DO Nov 14, 2018 09:41
== END 2018-11-14 12:00 | disposition home or self-care (01) | DRG 755 ==
LOC: M ED 03:06 → M ED INP 13:44 → M PSY 14:32
PROVIDERS: ADMIT Psychiatry & Neurology Addiction Medicine; ATTEND Psychiatry & Neurology Addiction Medicine
DX: F43.10 Post-traumatic stress disorder, unspecified (principal); E78.5 Hyperlipidemia, unspecified; Z79.899 Other long term (current) drug therapy; I73.9 Peripheral vascular disease, unspecified

== ENCOUNTER 2018-12-13 07:42 | Day surgery (SDC) | payer BC ==
[~2018-12-13] VITALS: Ht 180.3 cm; Wt 94.3 kg
[~2018-12-13 07:42] MED LIST changes: +ALPR0.5T3 PO; +CLONI1TA PO; +LR 1,000 ML IV ONE; +REME15TA PO
[2018-12-13] MEDS ORDERED: dexameTHASONE 4 MG/ML 1ML VIAL (J1100) As Ordered ONE (09:32)
[2018-12-13] MEDS ORDERED: LIDOCAINE 2% INJ 100 MG/5 ML SDV (FOR ANES.) As Ordered ONE (09:32)
[2018-12-13] MEDS ORDERED: ONDANSETRON 4MG/2ML VIAL (J2405) As Ordered ONE (09:32)
[2018-12-13] MEDS ORDERED: PROPOFOL 500 MG/50 ML VIAL As Ordered ONE (09:33)
[2018-12-13] MEDS ORDERED: MIDAZOLAM INJ 2 MG/2 ML VIAL (J2250) As Ordered ONE (09:33)
[2018-12-13] MEDS ORDERED: fentaNYL 100 MCG/2 ML INJECTION (J3010) As Ordered ONE (09:33)
[2018-12-13] MEDS ORDERED: LIDOCAINE W/EPINEPHRINE 1% 20ML VIAL As Ordered ONE (10:17)
[2018-12-13] MEDS ORDERED: BUPIVACAINE HCL 0.5% 10 ML VIAL As Ordered ONE (10:18)
[2018-12-13] MEDS ORDERED: LIDOCAINE 2% MDV 20 ML VIAL As Ordered ONE (10:18)
[2018-12-13] MEDS ORDERED: PROPOFOL 200 MG/20 ML VIAL As Ordered ONE (11:23)
[2018-12-13 12:00] VITALS: BP 135/82
--- NOTE | 2018-12-13 21:55 | ROOPDOC ---
[facility] Report Of Operation Report of Operation DATE OF PROCEDURE: 12/13/2018 PREOPERATIVE DIAGNOSES: Bilateral lower extremity deep and superficial venous valvular insufficiency. Bilateral lower extremity painful varicose veins. POSTOPERATIVE DIAGNOSES: Bilateral lower extremity deep and superficial venous valvular insufficiency. Bilateral lower extremity painful varicose veins. PROCEDURE: Left greater saphenous vein radiofrequency ablation. Greater than 20 left lower extremity varicose vein stab phlebectomy's. SURGEON: Dr. Angel Brice M.D. MEASUREMENT TECHNICIAN: None INDICATION: Patient is an 53-year-old male with extensive varicosities in the left knee and calf region which are exquisitely painful. The patient underwent an ultrasound of his lower extremities which showed venous valvular insufficiency in both the deep and superficial venous systems. Patient has tried compression stockings with minimal relief. Patient was evaluated and recommendation was to undergo left greater saphenous vein radiofrequency ablation with stab phlebectomy of the painful varicose veins. The procedure was described and explained to the patient in detail including drawing of pictures explaining and demonstrating the procedure and the pertinent anatomy. Risks, benefits and alternative treatment options were discussed with the patient and the patient's mother who was present during the preoperative discussion. Benefits included but were not limited to reduction of venous hypertension, removal of painful varicose veins, prevention of the venous stasis ulceration and relief of symptoms. Alternative treatment options included but are not limited to no intervention with continued conservative management. Risks included but were not limited to infection, bleeding, ulceration of the skin overlying the ablated vein, also formation at the site of the stab phlebectomy of varicose veins, no relief of symptoms, no cosmetic improvement, hematoma formation, scarring and bruising of the skin, nerve injury with loss of sensation and/or motor function, end-stage renal failure requiring hemodialysis, anesthetic complications, allergic reaction and/or complication from prepping and draping materials, possible need for transfusion of blood products, cerebrovascular accident, myocardial infarction, pulmonary embolus, deep venous thrombosis, possible need for open surgical intervention, loss of limb, loss of life and poor outcome. Risks of not performing the procedure included but were not limited to continued pain, swelling and possible venous stasis ulceration formation. Patient's questions were answered. Patient's mother's questions were answered. Patient voices understanding of these risks, benefits and alternative treatment options. Patient voices acceptance of the risks associated with the procedure and consents to proceed with greater saphenous vein radiofrequency ablation with stab phlebectomy of painful varicose veins. No promises or guarantees were made to the patient or patient's mother regarding the procedure outcome and results. ANESTHESIA: Local MAC IVF: 800 mL. ESTIMATED BLOOD LOSS: 75 mL. HEPARIN: None PROTAMINE: None COMPLICATIONS: None. DRAINS: None SPECIMENS: None IMPLANTS: None DESCRIPTION OF PROCEDURE: Patient was taken to operating room, placed supine on the operating room table and the patient's left lower extremity was prepped and draped in a standard surgical fashion. A procedural time-out was then performed by myself and all the surgical team members in the room confirming the correct patient, procedure and laterality. Ultrasound was then used to identify the greater saphenous vein in the left lower extremity. Ultrasound was then used to guide cannulation of the left greater saphenous vein with a micropuncture needle after anesthetizing the overlying skin and subcutaneous tissue with 2% lidocaine. Concurrent real time visualization of the entry of the micr opuncture needle into the left greater saphenous vein during ultrasound guided cannulation was performed with a hardcopy image preserved. The greater saphenous vein was widely patent, easily compressible, free of thrombus and measured approximately 8-9 millimeters. The micropuncture wire was advanced through the micropuncture needle which was up-sized to a micropuncture sheath. A stiff wire was then advanced through the micropuncture sheath which was up-sized to a 7 Sammarinese sheath. The radiofrequency ablation catheter was then advanced through the 7 Sammarinese sheath along the course of the greater saphenous vein under ultrasound guidance and placed 2 cm distal to the saphenofemoral junction. The subcutaneous tissue surrounding the greater saphenous vein from the saphenofemoral junction to the entry site in the below knee region was then anesthetized with injection of tumescent solution circumferentially around the greater saphenous vein. The tumescent solution consisted of 30 mL of 1% lidocaine with epinephrine mixed with 500 mL of normal saline. Once the tumescent solution was injected circumferentially around the greater saphenous vein from the saphenofemoral junction to the entry site, the radiofrequency ablation of the greater saphenous vein was performed under ultrasound guidance from 2 cm distal to the saphenofemoral junction to the entry site in the below knee region. Catheters and wires were then removed. The varicosities in the left lower extremity were marked in the preoperative holding area in the sta nding position. Stab phlebectomy of the varicosities in the left lower extremity was then performed with the stab phlebectomy sites closed with alex. Dressings were applied. Werner wrap was applied from the base of the toes to the inguinal region. All instrument, sponge and needle counts were correct at the end of the case. Dr. Brice was present for and directed the entire case. There were no complications. Patient tolerated the procedure well. Patient was transferred to the recovery room extubated, awake, alert and in stable condition. The procedure and results were discussed and described to the patient in the postoperative holding area with all of his questions being answered. The procedure and results were discussed and described to the patient's mother in the surgical waiting room with all of her questions answered. Severo Brice MD Dec 13, 2018 10:45
== END 2018-12-13 12:15 | disposition home or self-care (01) ==
LOC: M SDC 07:42
PROVIDERS: ATTEND Surgery Vascular Surgery
DX: I83.813 Varicose veins of bilateral lower extremities with pain (principal); I87.2 Venous insufficiency (chronic) (peripheral); E03.9 Hypothyroidism, unspecified; E78.00 Pure hypercholesterolemia, unspecified; K21.9 Gastro-esophageal reflux disease without esophagitis; F41.9 Anxiety disorder, unspecified; F32.9 Major depressive disorder, single episode, unspecified; Z79.899 Other long term (current) drug therapy
CPT/HCPCS: 36475; 37766; 88300; J1100; J2250; J2405; J3010

== ENCOUNTER → 2018-12-22 | Outpatient (CLI) | payer BC ==
[~2018-12-22] MED LIST changes: -LR 1,000 ML IV ONE
--- NOTE | 2018-12-22 12:37 | REP ---
Left lower extremity deep vein duplex ultrasound for DVT: The the patient is status post superficial vein ablation. The The deep veins demonstrate normal compression, normal Doppler color flow and normal Doppler waveforms with respiration and augmentation from the popliteal vein to the common femoral vein. Impression: There is no deep vein thrombus. The greater saphenous vein is occluded as a consequence of ablation 2.3 cm from its junction. Electronically Signed by Harry Santos MD 12/22/2018 12:28 P
== END ==
LOC: M RAD 09:54
PROVIDERS: ATTEND Physician Assistant
DX: I87.2 Venous insufficiency (chronic) (peripheral) (principal); I80.02 Phlebitis and thrombophlebitis of superficial vessels of left lower extremity